=== PATIENT | female | born 1940 | race Caucasian/White ===

== ENCOUNTER → 2018-10-11 | Outpatient (CLI) | payer OTHER ==
[~2018-10-11] MED LIST: ASPIR 8181 MG PO; ASPIRIN325 PO; ATORVASTATIN CA40 MG PO; BENADRYL25 MG PO; BRILINTA90 MG PO; CALCIUM500 MG PO; COREG3.125 MG PO; FOSAMAX 70 MG T70 M1; KLOR-CON 1010 MEQ PO; LASIX 20 MG TAB20 MG PO; LASIX 40 MG TAB40 M2 PO; LEVOTHROID88 MCG; LEVOXYL88 MCG PO; LIPITOR 20 MG T20 M1 PO; LISINOPRIL2.5 M1 PO; LISINOPRIL2.5 MG PO; NITROGLYCERIN0.4 MG SUBLING; OMEPRAZOLE40 MG PO; PLAVIX 75 MG TA75 M1 PO; PREDNISONE 20 M20 MG PO; SERTRALINE HCL100 MG PO
--- NOTE | 2018-10-11 17:29 | CARDNUC ---
[place] [address] CARDIAC NUCLEAR IMAGING REPORT Name: CLAUDIA GIVENS Room: [facility]#: [id number] Admission: 10/11/18 Attend Phys: Deangelo Cash Discharge: Date of : 36 Date of Service: 10/11/18 1729 Report #: [id number] THIS REPORT FOR: //name// APPROVED REPORT Study performed: 10/11/2018 11:25:35 Exam: Nuclear Stress Test Indication: CAD s/p PCI, CAD s/p FL Patient Location: Out-Patient Stress Tech: Shyanne Rao Stress Nurse: Zenaida Barkley R.N. Ht: 5 ft 1 in Wt: 132 lbs BSA: 1.58 m2 BMI: 24.93 Medical History Medical History: Angina, CAD s/p stent, CAD s/p FL, Cardiomyopathy, HTN, Hyperlipidemia, Bradycardia. Medications: ASA 81 Mg, Lipitor, Carvedilol, Lasix, Lisinopril, K-Dur, Plavix, NTG. Allergies: Penicillin-G, Sulfa ABT, Ticagrelor. Cardiac Risk Factors: Age, FHX of CAD, HTN, Hyperlipidemia, Cardiomyopathy. Previous Cardiac Procedures: Myocardial infarction, PCI Pretest Chest Pain Characteristics: No chest pain Exercise History: Indeterminate Physical Disabilities: Generalized weakness, unstable gait. Meds Held (24 hrs): Carvedilol, NTG. Stress Test Details Stress Test: Pharmacologic stress testing performed using 0.4 mg of regadenoson per 5 mL given IV over 10 seconds. HR Resting HR: 48 bpm Max Heart Rate (APMHR): 141 bpm Max HR Achieved: 100 bpm Target HR (85% APMHR): 119 bpm % of APMHR: 70 Recovery HR: 84 bpm HR response to stress: Normal HR response to stress BP Resting BP: 139/73 mmHg Max BP: 123/[place] [address] CARDIAC NUCLEAR IMAGING REPORT Name: CLAUDIA GIVENS MONTERROSO Room: [facility]#: [id number] Admission: 10/11/18 Attend Phys: Deangelo Cash Discharge: Date of : 36 Date of Service: 10/11/18 1729 Report #: [id number] BP response to stress: Normal blood pressure response to stress. ECG Resting ECG: Sinus Bradycardia otherwise normal Stress ECG: Sinus Rhythm, nonspecific ST-T abnormalities ST Change: Nondiagnostic low heart rate Maximum ST Deviation: 0.5 mm Arrhythmia: None Recovery ECG: Sinus Rhythm, nonspecific ST-T abnormalities Recovery ST Change: Nondiagnostic low heart rate Recovery ST Deviation: 0.5 mm Recovery Arrhythmia: None Clinical Reason for Termination: Completed protocol Stress Symptoms: Overall heaviness feeling in body and breathing. Exercise duration: 00 min 00 sec Exercise capacity: 1.00 METs Nurse Comments 77 year old female presented with HX of FL and PCI. Patient tolerated sitting Lexiscan well. Recovery unremarkable with PO caffeine, effective. Patient escorted by staff to Nuclear Medicine for images. Patient was stable with no complaints at that time. Stress ECG Conclusion Normal hemodynamic response to pharmacologic stress. Non-diagnostic exercise stress due to failure to attain target HR. NM EXAM: Myocardial Perfusion REST/STRESS Resting Data Rest SPECT myocardial perfusion imaging was performed in supine position 30 minutes following the intravenous injection of 11.2 mCi of Tc-99m Sestamibi. Time of rest injection: 10:05 The images were gated to evaluate regional wall motion and calculate left ventricular ejection fraction. Administration Route: IV Administration Site: Right Hand Pharmacologic Stress Pharmacologic stress test was performed by injecting Regadenoson 0.4 mg IV push followed by the intravenous injection [place] 32[place] [address] CARDIAC NUCLEAR IMAGING REPORT Name: CLAUDIA GIVENS Room: [facility]#: [id number] Admission: 10/11/18 Attend Phys: Deangelo Cash Discharge: Date of : 36 Date of Service: 10/11/18 1729 Report #: [id number] Tc-99m Sestamibi. Time of stress injection: 11:30 Administration Route: IV Administration Site: Right Hand Heart Rate at time of stress injection: 96 bpm. Gated Stress SPECT was performed 45 minutes after stress injection. The images were gated to evaluate regional wall motion and calculate left ventricular ejection fraction. Prone imaging was performed. Study Quality Study: Good Artifact: Mild Breast artifact Lung Uptake: Normal Study Data At rest, the left ventricular ejection fraction was 74%.. Post stress, the left ventricular ejection was 63%.. TID = 1.08. Perfusion The resting study demonstrated a very small mild anterior defect. Stress images also demonstrated a very small mild anterior defect as did the prone images. Breast attenuation artifact was seen on the raw data. There were no reversible defects seen there was no evidence of myocardial ischemia. Images were reviewed using [employer]. Wall Motion Normal left ventricular wall motion. Nuclear Conclusion ECG Findings: non-diagnostic Clinical Findings: non-diagnostic Nuclear Findings: negative for ischemia Exercise Capacity: not assessed Left Ventricular Function: normal Risk Study: low The Lexiscan Cardiolite stress test demonstrates low probability of myocardial ischemia. Overall this is a low risk study. <Conclusion> [place] [address] CARDIAC NUCLEAR IMAGING REPORT Name: MAYURI GIVENSLINDA TORRESE [id number] Admission: 10/11/18 Attend Phys: Deangelo Cash Discharge: Date of : 36 Date of Service: 10/11/18 0149 Report #: [id number] Normal hemodynamic response to pharmacologic stress. Non-diagnostic exercise stress due to failure to attain target HR. <ELECTRONICALLY SIGNED> By: Saman Hernandez MD, [facility] 10/11/181728 28 28 Saman Hernandez MD, FACC /INF
== END ==
LOC: M.NUC 08-06 16:42
DX: I25.10 Atherosclerotic heart disease of native coronary artery without angina pectoris (principal); I25.2 Old myocardial infarction; I10 Essential (primary) hypertension; E78.5 Hyperlipidemia, unspecified; Z88.0 Allergy status to penicillin; Z88.2 Allergy status to sulfonamides; Z95.5 Presence of coronary angioplasty implant and graft

== ENCOUNTER → 2019-04-11 | Outpatient (CLI) | payer OTHER ==
--- NOTE | 2019-04-11 13:24 | 2DMMODE ---
[place] [address] 2 D/M-MODE ECHOCARDIOGRAM Name: CLAUDIA GIVENS Room: [facility]#: [id number] Admission: 04/11/19 Attend Phys: Deangelo Cash Discharge: Date of : 36 Date of Service: 04/11/19 1323 Report #: [id number] THIS REPORT FOR: cc: Desiree Sparks Anna S. DO Holkins,Kartik Martines MD [facility] ~ APPROVED REPORT Study performed: 04/11/2019 09:39:24 EXAM: Comprehensive 2D, Doppler, and color-flow Echocardiogram Patient Location: Out-Patient BSA: 1.59 HR: 58 bpm BP: 110/60 mmHg Other Information Study Quality: Good Indications CAD Hypertension/HDD 2D Dimensions IVSd: 10.80 (7-11mm) LVOT Diam: 20.31 (18-24mm) LVDd: 39.14 mm PWd: 9.21 (7-11mm) Ascending Ao: 27.53 (22-36mm) LVDs: 30.00 (25-40mm) Aortic Root: 28.35 mm Volumes Left Atrial Volume (Systole) LA ESV Index: 15.20 mL/m2 Aortic Valve AoV Peak Michael.: 1.01 m/s AO Peak Gr.: 4.12 mmHg LVOT Max P.78 mmHg AO Mean Gr.: 2.11 mmHg LVOT Mean P.84 mmHg LVOT Max V: 0.67 m/s AO V2 VTI: 19.95 cm LVOT Mean V: 0.42 m/s GROVER (VTI): 2.62 cm2 LVOT V1 VTI: 16.13 cm AI Major: 2.17 m/s2 AI PHT: 545.87 [place] [address] 2 D/M-MODE ECHOCARDIOGRAM Name: CHONCLAUDIA Room: [facility]#: [id number] Admission: 04/11/19 Attend Phys: Deangelo Cash Discharge: Date of : 36 Date of Service: 04/11/19 1323 Report #: [id number] Mitral Valve E/A Ratio: 0.81 MV Decel. Time: 188.55 ms MV E Max Michael.: 0.54 m/s MV PHT: 54.68 ms MVA (PHT): 4.02 cm2 TDI E/Lateral E': 5.40 E/Medial E': 4.91 Medial E' Michael.: 0.11 m/s Lateral E' Michael.: 0.10 m/s Pulmonary Valve PV Peak Michael.: 0.61 m/s PV Peak Gr.: 1.51 mmHg Tricuspid Valve RAP Estimate: 5.00 mmHg TR Peak Gr.: 19.65 mmHg RVSP: 24.65 mmHg PA Pressure: 24.65 mmHg Left Ventricle The left ventricle is normal size. There is normal LV segmental wall motion. There is normal left ventricular wall thickness. Left ventricular systolic function is normal. The left ventricular ejection fraction is within the normal range. LVEF is 60%. Grade I - abnormal relaxation pattern. Right Ventricle The right ventricle is normal size. The right ventricular systolic function is normal. Atria The left atrium size is normal. The right atrium size is normal. Aortic Valve Mild aortic valve sclerosis. Mild aortic regurgitation. There is no aortic valvular stenosis. Mitral Valve The mitral valve is normal in structure. Mild mitral regurgitation. No evidence of mitral valve stenosis. Tricuspid Valve The tricuspid valve is normal in structure[place] [address] 2 D/M-MODE ECHOCARDIOGRAM Name: CLAUDIA GIVENS Room: [facility]#: [id number] Admission: 04/11/19 Attend Phys: Deangelo Cash Discharge: Date of : 36 Date of Service: 04/11/19 1323 Report #: [id number] regurgitation. Pulmonic Valve The pulmonary valve is normal in structure. There is no pulmonic valvular regurgitation. Great Vessels The aortic root is normal in size. IVC is normal in size and collapses >50% with inspiration. Pericardium There is no pericardial effusion. <Conclusion> The left ventricle is normal size. There is normal left ventricular wall thickness. Left ventricular systolic function is normal. The left ventricular ejection fraction is within the normal range. LVEF is 60%. Grade I - abnormal relaxation pattern. The right ventricle is normal size. The left atrium size is normal. Mild aortic valve sclerosis. Mild aortic regurgitation. There is no aortic valvular stenosis. The mitral valve is normal in structure. Mild mitral regurgitation. The tricuspid valve is normal in structure. Mild tricuspid regurgitation. IVC is normal in size and collapses >50% with inspiration. There is no pericardial effusion. There is normal LV segmental wall motion. <ELECTRONICALLY SIGNED> By: Kartik Ruby MD, FACC 04/11/19 1323 1323 132 Kartik Ruby MD, FACC /INF
== END ==
LOC: M.CRD 09:46
DX: I08.3 Combined rheumatic disorders of mitral, aortic and tricuspid valves (principal); I25.10 Atherosclerotic heart disease of native coronary artery without angina pectoris; I25.5 Ischemic cardiomyopathy; I10 Essential (primary) hypertension

== ENCOUNTER → 2020-11-13 | Outpatient (CLI) | payer OTHER ==
--- NOTE | 2020-11-13 11:38 | 2DMMODE ---
[place] [address] 2 D/M-MODE ECHOCARDIOGRAM Name: CLAUDIA GIVENS Room: [facility]#: [id number] Admission: 11/13/20 Attend Phys: Deangelo Cash Discharge: Date of : 36 Date of Service: 11/13/20 1137 Report #: [id number] THIS REPORT FOR: cc: Desiree Sparks Anna S. DO Liston, Michael J. MD [facility] ~ APPROVED REPORT Study performed: 11/13/2020 09:58:56 EXAM: Comprehensive 2D, Doppler, and color-flow Echocardiogram Patient Location: Out-Patient BSA: 1.62 HR: 58 bpm BP: 160/80 mmHg Other Information Study Quality: Good Indications CAD Hypertension/HDD 2D Dimensions IVSd: 10.55 (7-11mm) LVOT Diam: 20.92 (18-24mm) LVDd: 40.46 mm PWd: 9.11 (7-11mm) Ascending Ao: 30.33 (22-36mm) LVDs: 27.20 (25-40mm) Aortic Root: 29.95 mm Volumes Left Atrial Volume (Systole) LA ESV Index: 14.30 mL/m2 Aortic Valve AoV Peak Michael.: 0.95 m/s AO Peak Gr.: 3.59 mmHg LVOT Max P.81 mmHg AO Mean Gr.: 1.94 mmHg LVOT Mean P.92 mmHg LVOT Max V: 0.67 m/s AO V2 VTI: 20.98 cm LVOT Mean V: 0.45 m/s GROVER (VTI): 2.70 cm2 LVOT V1 VTI: 16.51 cm AI Kershaw: 2.49 m/s2 AI PHT: 486.41 [place] [address] 2 D/M-MODE ECHOCARDIOGRAM Name: CHONCLAUDIA Room: [facility]#: [id number] Admission: 11/13/20 Attend Phys: Deangelo Cash Discharge: Date of : 36 Date of Service: 11/13/20 1137 Report #: [id number] Mitral Valve E/A Ratio: 1.00 MV Decel. Time: 198.91 ms MV E Max Michael.: 0.64 m/s MV PHT: 57.68 ms MVA (PHT): 3.81 cm2 TDI E/Lateral E': 8.00 E/Medial E': 9.14 Medial E' Michael.: 0.07 m/s Lateral E' Michael.: 0.08 m/s Pulmonary Valve PV Peak Michael.: 0.58 m/s PV Peak Gr.: 1.33 mmHg Tricuspid Valve RAP Estimate: 5.00 mmHg TR Peak Gr.: 20.40 mmHg RVSP: 25.40 mmHg PA Pressure: 25.40 mmHg Left Ventricle The left ventricle is normal size. There is normal LV segmental wall motion. There is normal left ventricular wall thickness. Left ventricular systolic function is normal. LVEF is 55-60%. Transmitral Doppler flow pattern suggests impaired LV relaxation. Right Ventricle The right ventricle is normal size. The right ventricular systolic function is normal. Atria The left atrium size is normal. The right atrium size is normal. Aortic Valve The aortic valve is normal in structure. Mild aortic regurgitation. There is no aortic valvular stenosis. Mitral Valve The mitral valve is normal in structure. Mild mitral regurgitation. No evidence of mitral valve stenosis. Tricuspid Valve The tricuspid valve is normal in structure. Mild tricuspid regurgitation. [place] [address] 2 D/M-MODE ECHOCARDIOGRAM Name: CLAUDIA GIVENS Room: [facility]#: [id number] Admission: 11/13/20 Attend Phys: Deangelo Cash Discharge: Date of : 36 Date of Service: 11/13/20 1137 Report #: [id number] Pulmonic Valve The pulmonary valve is normal in structure. There is no pulmonic valvular regurgitation. Great Vessels The aortic root is normal in size. The inferior vena cava is not well visualized. Pericardium There is no pericardial effusion. <Conclusion> The left ventricle is normal size. There is normal left ventricular wall thickness. Left ventricular systolic function is normal. LVEF is 55-60%. Transmitral Doppler flow pattern suggests impaired LV relaxation. Mild aortic regurgitation. Mild mitral regurgitation. Mild tricuspid regurgitation. No pulmonary hypertension. <ELECTRONICALLY SIGNED> By: Xavier Oropeza MD, FACC 11/13/20 1137 113 113 Xavier Oropeza MD, FACC /INF
== END ==
LOC: M.CRD 09:54
PROVIDERS: ATTEND Internal Medicine
DX: I08.3 Combined rheumatic disorders of mitral, aortic and tricuspid valves (principal); I25.10 Atherosclerotic heart disease of native coronary artery without angina pectoris; I10 Essential (primary) hypertension